=== PATIENT | female | born 2000 ===

== ENCOUNTER 2021-10-30 09:51 | Outpatient (CLI) | payer OTHER | END 2021-10-30 10:51 | disposition home or self-care (01) | LOC: PRENATAL 09:51 | PROVIDERS: ATTEND Obstetrics & Gynecology Maternal & Fetal Medicine | DX: O28.9 Unspecified abnormal findings on antenatal screening of mother (principal); Z36.0 Encounter for antenatal screening for chromosomal anomalies ==

== ENCOUNTER 2021-12-04 10:59 | Outpatient (CLI) | payer OTHER | END 2021-12-04 12:27 | disposition home or self-care (01) | LOC: PRENATAL 10:59 | PROVIDERS: ATTEND Obstetrics & Gynecology Maternal & Fetal Medicine | DX: O35.0XX0 Maternal care for (suspected) central nervous system malformation in fetus, not applicable or unspecified (principal); O99.891 Other specified diseases and conditions complicating pregnancy; O26.879 Cervical shortening, unspecified trimester; Z3A.20 20 weeks gestation of pregnancy ==

== ENCOUNTER 2021-12-26 09:07 | Outpatient (CLI) | payer OTHER | END 2021-12-26 10:55 | disposition home or self-care (01) | LOC: PRENATAL 09:07 | PROVIDERS: ATTEND Obstetrics & Gynecology Maternal & Fetal Medicine | DX: O26.849 Uterine size-date discrepancy, unspecified trimester (principal); O99.891 Other specified diseases and conditions complicating pregnancy; O26.879 Cervical shortening, unspecified trimester; Z3A.23 23 weeks gestation of pregnancy ==

== ENCOUNTER 2022-04-09 18:46 | Outpatient (CLI) | payer OTHER ==
[2022-04-10] MEDS ORDERED: VAZALORE81 MG PO (00:02)
[2022-04-10] MEDS ORDERED: PROMETRIUM200 MG PO (00:03)
[2022-04-10] MEDS ORDERED: PRENATAL TABLE1 EAC3 PO (00:03)
[2022-04-10] MEDS ORDERED: FOLIC ACID0.8 M1 PO (00:04)
== END 2022-04-10 17:23 | disposition home or self-care (01) ==
LOC: OBS/DEL 18:46
PROVIDERS: ATTEND Obstetrics & Gynecology
DX: O26.893 Other specified pregnancy related conditions, third trimester (principal); Z3A.38 38 weeks gestation of pregnancy; M79.604 Pain in right leg